=== PATIENT | male | born 1930 | race Caucasian/White ===

== ENCOUNTER 2021-06-19 07:19 | Day surgery (SDC) | payer OTHER ==
[2021-06-15 13:24] LABS: Absolute Lymphocytes (CBC) 1.8 K/uL (0.7-4.9); Basophils % 0.8 % (0-1.3); Hematocrit 37.2 % (39.6-49.0); Lymphocytes % 33.3 % (15.3-44.8); MPV 7.4 fL (7.6-11.3); Protime INR 1.06
[2021-06-15 13:32] LABS: Potassium 4.6 mmol/L (3.5-5.1)
--- NOTE | 2021-06-15 13:54 | RAD REPORT ---
EXAM DESCRIPTION: Jayesh Bruce And Ankit (2 Views)06/15/2021 1:42 pm CLINICAL HISTORY: Cough COMPARISON: 2013 FINDINGS: Calcified granuloma left lung. The lungs appear clear of acute infiltrate. The heart is normal size Aorta is tortuous/ectatic IMPRESSION: No acute abnormalities displayed
[~2021-06-19 07:19] MED LIST: CLINDAMYCIN INJ 600 MG in NA CHLORIDE 0.9% 50 ML IV SCH; Gentamicin Inj 180 MG in NA CHLORIDE 0.9% 100 ML IV SCH
[2021-06-19] MEDS ORDERED: Ringers Lactate 1,000 ML IV ONE ×2 (08:05→11:03)
[2021-06-19] MEDS ORDERED: LIDOCAINE 1% MPF 5 ML VIAL ONE (08:55)
[2021-06-19] MEDS ORDERED: propofoL 200 MG/20 ML VIAL IV ONE (08:55)
[2021-06-19] MEDS ORDERED: FENTANYL CITR 100 MCG/2 ML ONE (08:55)
[2021-06-19] MEDS ORDERED: ONDANSETRON 4 MG/2 ML VIAL ONE (08:55)
[2021-06-19] MEDS ORDERED: CODEINE 30MG/APAP 300MG TAB PO PRN (09:46)
[2021-06-19] MEDS ORDERED: OPIUM/BELLADONNA SUPPOS (30-16.2 MG) PR ONE ×2 (09:46→11:28)
[2021-06-19] MEDS ORDERED: PHENAZOPYRIDINE 100MG TAB PO ONE ×2 (09:46→12:15)
[2021-06-19] MEDS ORDERED: CODEINE 30MG/APAP 300MG TAB ONE (12:15)
[2021-06-19 13:43] VITALS: BP 129/80; TEMP 96.7; O2SAT 96
--- NOTE | 2021-06-19 16:16 | EKG ---
Test Date: 2021-06-15 Test Time: 12:17:05 Dice Person: TG MEASUREMENT RESULTS: Intervals: Rate: 49 MN: 214 QRSD: 108 QT: 418 QTc: 377 Galt: P: 35 MN: 214 QRS: 23 T: 51 INTERPRETIVE STATEMENTS: Marked sinus bradycardia with 1st degree AV block Incomplete right bundle branch block Abnormal ECG Compared to ECG 09/15/2014 19:03:18 First degree AV block now present Sinus rhythm no longer present Left ventricular hypertrophy no longer present Electronically Signed On 06-19-21 16:12:07 CDT by Jose Daley
--- NOTE | 2021-06-19 16:51 | OP ---
Date of Procedure: 06/19/2021 Surgeon: SALO VALENTINO Preoperative Diagnoses: 1.Benign prostatic hypertrophy with lower urinary tract obstructive symptoms. 2.History of acute urinary retention. Postoperative Diagnoses: 1.Benign prostatic hypertrophy with lower urinary tract obstructive symptoms. 2.History of acute urinary retention. Principle Procedures: 1.Cystoscopy and bipolar transurethral resection of the prostate. 2.Urethral dilation using sounds. Indication For Procedure: Mr. Balderas is an 89-year-old gentleman, intolerant to alpha-paola medica l therapy with persistent obstructive lower urinary symptoms due to BPH with an intravesical projecti ng median lobe. I counseled him about the risks and side effects of the procedure as well as the pos toperative expectations. He would rather not take medical therapy and preferred to proceed directly with surgical approach. Procedure In Detail: The patient was consented in the preoperative holding area before being transfe rred to the operative suite where general anesthesia was induced. He was given clindamycin and genta micin approximately 2.2 mg/kg IV antimicrobial prophylaxis. Pneumo boots were provided for DVT proph ylaxis. He was placed in the lithotomy position, padded and secured appropriately. His genitalia we re prepped using Hibiclens and he was draped in standard fashion. The case was begun using urethral sounds to dilate the meatus and fossa navicularis to 30-Tongan. I then employed the visual obturator and the 26-Tongan bipolar resectoscope sheath to traverse the urethra and into the bladder with ease . Within the bulbar urethra, there was the appearance of a stricture that was passable easily with t he 26-Tongan resectoscope and perhaps dilated by it. Upon entry into the bladder, it was noted to be moderately trabeculated with some minor cellule formation and the median lobe was noted to abut the trigone. I began the case using the bipolar resectoscope loop to resect the median lobe visualizing the right ureteral orifice during the process and taking that down to the level of the bladder neck. I then performed a similar approach on the left side visualizing the left ureteral orifice before re secting the remainder of the median lobe intravesically projecting. I then resected the remainder of the median bar down to the level of the verumontanum to leave this move trough from the verumontanum all the way into the bladder. I then resected the right lateral lobe and the left lateral lobe alte rnatingly carefully fulgurating along the way to minimize the active bleeding given his advanced age. All overhanging lateral lobar hypertrophy, which was greater on the right side than on the left marva e, was resected leaving a nice open trough. The verumontanum was spared as was some minimal apical l ateral tissue in a nonobstructing fashion. The remainder of the prostate was resected all the way in to the bladder including any anterior urethral overhang. All prostate chips were Ellik evacuated fro m the bladder. Careful fulguration was made with the bladder completely decompressed in order to ens ure cessation of any venous oozing. In the end, with the bladder completely decompressed, there was no active bleeding, and so the bladder was left full. I then surveyed the urethra on the way out, an d when no additional prostate chips were visualized, I then left the bladder full and placed a [facility] 3-way Cline catheter into his bladder with ease. I placed approximately 40 mL of sterile water i nto the balloon. The patient was then taken out of the lithotomy position, and the catheter was plac ed to moderate traction. He was then started on slow drip CBI and the returning efflux was completel y clear. He was then awakened from general anesthesia, transferred to a stretcher, and then transfer red to the recovery room in good condition. Complications: None. Discharge Disposition: He will maintain the urethral Cline catheter to traction for 1 hour and then that will be taken down and placed to a StatLock. CBI will then be weaned over the course of the nex t hour and discontinued once appropriately light pink to clear. He will then be discharged home with a catheter in place with instructions to cleanse around the meatus with hydrogen peroxide and apply Neosporin or triple antibiotic ointment at least twice a day to keep it lubricated. Subsequent followup will be next [facility] with [facility] for a voiding trial. LINDA/VERONICA Voice ID: [id number] Report ID: [id number]
== END 2021-06-19 13:20 | disposition home or self-care (01) ==
LOC: OR 07:19
PROVIDERS: ATTEND Urology
PROC: 0T7D8ZZ Dilation of Urethra, Via Natural or Artificial Opening Endoscopic (ICD-10-PCS; 2021-06-19)
PROC: 0VT08ZZ Resection of Prostate, Via Natural or Artificial Opening Endoscopic (ICD-10-PCS; principal; 2021-06-19 08:30)
DX: N40.1 Benign prostatic hyperplasia with lower urinary tract symptoms (principal); Z20.822 Contact with and (suspected) exposure to COVID-19
CPT/HCPCS: 93005; 87088; 85025; 87086; 80048; 36415; 85610; 88305; 85730; 71046; 52601; 52281; U0003; J2704; J1580; J3010; J7120 ×2; J2405